=== PATIENT | female | born 1985 | race Caucasian/White ===

== ENCOUNTER → 2017-11-26 12:22 | Outpatient (CLI) | payer MEDICAID, SELFPAY ==
--- NOTE | 2017-11-26 12:25 | US_ITS ---
STUDY: ULTRASOUND OF THE FEMALE PELVIS - COMPLETE REASON FOR EXAM: Female, 32 years old. Chronic pelvic pain. History of endometriosis. LMP: TECHNIQUE: Transabdominal and Transvaginal TECHNICAL QUALITY: Adequate. COMPARISON: Comparison is made with prior study dated March 06, 2010. FINDINGS: The uterus is retroflexed and is in a midline position. The uterus measures 7.8 cm x 4.2 cm x 2.3 cm. Normal uterine cervix. The endometrium measures 4.0 mm in thickness, and is hyperechoic. There is no demonstrated endometrial mass. There is no demonstrated myometrial mass. I.U.D. - The patient does not have an I.U.D. The right ovary is visualized. The right ovary measures 3.6 cm x 2.5 cm x 1.8 cm. There is no right ovarian cyst or ovarian mass. There is no visualized right adnexal mass or complex lesion. There is normal arterial and normal venous vascularity. The left ovary is visualized. The left ovary measures 3.2 cm x 2.6 cm x 1.9 cm. There is no left ovarian cyst or ovarian mass. There is no visualized left adnexal mass or complex lesion. There is normal arterial and normal venous vascularity. There is no fluid in the cul-de-sac. The pre void volume of the bladder was 463 ml. Polycystic ovary disease: No. US/Pelvic (Non ) IMPRESSION: Normal female pelvis. Electronically Signed: Alvaro Dos Santos MD at 15:03 EDT Tel [phone], Service support ,
--- NOTE | 2017-11-26 12:25 | US_ITS ---
STUDY: ULTRASOUND OF THE FEMALE PELVIS - COMPLETE REASON FOR EXAM: Female, 32 years old. Chronic pelvic pain. History of endometriosis. LMP: TECHNIQUE: Transabdominal and Transvaginal TECHNICAL QUALITY: Adequate. COMPARISON: Comparison is made with prior study dated March 06, 2010. FINDINGS: The uterus is retroflexed and is in a midline position. The uterus measures 7.8 cm x 4.2 cm x 2.3 cm. Normal uterine cervix. The endometrium measures 4.0 mm in thickness, and is hyperechoic. There is no demonstrated endometrial mass. There is no demonstrated myometrial mass. I.U.D. - The patient does not have an I.U.D. The right ovary is visualized. The right ovary measures 3.6 cm x 2.5 cm x 1.8 cm. There is no right ovarian cyst or ovarian mass. There is no visualized right adnexal mass or complex lesion. There is normal arterial and normal venous vascularity. The left ovary is visualized. The left ovary measures 3.2 cm x 2.6 cm x 1.9 cm. There is no left ovarian cyst or ovarian mass. There is no visualized left adnexal mass or complex lesion. There is normal arterial and normal venous vascularity. There is no fluid in the cul-de-sac. The pre void volume of the bladder was 463 ml. Polycystic ovary disease: No. US/Transvaginal Non- IMPRESSION: Normal female pelvis. Electronically Signed: Alvaro Dos Santos MD at 15:03 EDT Tel [phone], Service support ,
== END ==
PROVIDERS: Family Provider Internal Medicine; PCP Internal Medicine; Visit Provider Obstetrics & Gynecology
DX: R14.0 Abdominal distension (gaseous) (principal); R10.2 Pelvic and perineal pain; G89.29 Other chronic pain
CPT/HCPCS: 76830; 76856; 93976

== ENCOUNTER 2018-01-20 11:50 | Day surgery (SDC) | payer MEDICAID, SELFPAY ==
[2018-01-20] VITALS (7 sets, daily range): BP systolic 97–127; BP diastolic 65–74; PULSE 52–81; RESP 14–16; TEMP 36.2–36.9; O2SAT 95–100; BMI 27.4
--- NOTE | 2018-01-20 06:36 | HP.PCM_ITS ---
- Problem List (1) NOMAN III (cervical intraepithelial neoplasia grade III) with severe dysplasia Status: Acute History and Physical Date of Admission: 01/20/18 Intake Vital Signs 3 11/18/17 Body Mass Index (BMI) 25.1 11/18/17 Blood Pressure 98/71 11/18/17 Height 5 ft 9 in 11/18/17 Weight: 174 lb 2 oz 11/18/17 Body Mass Index (BMI) 25.7 11/18/17 Blood Pressure 108/73 Intake Visit Reasons: NEW PT. NOMAN F/U Chief Complaint: NOMAN Follow Up Gr[employer] 9 Thru 12 Vis[employer] Required: No Is patient in pain?: Yes Allergies duloxetine HCl [From Cymbalta] Allergy (Verified 11/18/17 15:23) Other ketorolac tromethamine [From Toradol] Adverse Reaction (Verified 11/18/17 15:23) Other prochlorperazine edisylate [From Compazine] Adverse Reaction (Verified 11/18/17 15:23) Unknown prochlorperazine maleate [From Compazine] Adverse Reaction (Verified 11/18/17 15 :23) Unknown Medications Dicyclomine HCl [Bentyl] 10 mg PO TID PRN PRN 02/08/15 [History Confirmed ] [place] Carbonate [Lithobid] 300 mg PO TID 02/08/15 [History Confirmed 11/18/17] Magnesium Oxide [Mag-Ox 400] 400 mg PO DAILY 02/08/15 [History Confirmed ] Metoprolol Tartrate [Lopressor (Beta Elizabeth)] 25 mg PO DAILY 02/08/15 [History Confirmed 11/18/17] Oxcarbazepine [Trileptal] 300 mg PO BID 02/08/15 [History Confirmed 02/08/15] Quetiapine Fumarate [Seroquel Xr] 300 mg PO QHS 02/08/15 [History Confirmed 04/30] Sertraline HCl [Zoloft] 200 mg PO DAILY 02/08/15 [History Confirmed 11/18/17] alprazolam 1 mg tablet 1 mg PO ONCE 11/18/17 [History Confirmed 11/18/17] drospirenone-ethinyl estradiol 3 mg-0.02 mg (24) tablet 1 tab PO QDAY 11/18/17 [ History Confirmed 11/18/17] pregabalin 200 mg capsule 200 mg PO TID 11/18/17 [History Confirmed 11/18/17] triamterene 37.5 mg-hydrochlorothiazide 25 mg capsule 1 cap PO QAM 11/18/17 [ History Confirmed 11/18/17] Is last menstrual period known: Yes Last Menstral Period: 11/11/17 Post menopausal: No Patient : No : No PFSH Medical History Abnormal Pap smear of cervix (Acute) Anxiety and depression (Acute) Endometriosis (Acute) PTSD (post-traumatic stress disorder) (Acute) Tachycardia (Acute) Surgical History H/O laparoscopy (Acute) History of appendectomy (Acute) Family History Grandmother Alzheimer disease Thyroid disorder Myocardial infarction Grandfather Cancer Lung Social History Smoking Status: Current every day smoker alcohol intake: never substance use type: does not use caffeine: Yes frequency: 3-4 times per week seatbelt use: always do you feel safe at home: Yes additional social history: single- unemployed HPI NEW PT. NOMAN F/U: Details: JONAS SHAW is a 32 year old who presents for an abnormal pap smear she had a colposcopy recently and she had high grade abnormalities. she is also co bloating and lower pelvic pain that is new for her and increased. she has a history of endometriosis and takes continuous ocp. Female Reproductive History Last Menstral Period: 11/11/17 Pregancy History 2 0 Elective abortions Hx Para Spontaneous abortions Hx # Term Pregnancies Ectopic pregnancies Hx # Pregnancies Multiple births # of living children ROS Const Constitutional: Denies poor appetite, headache(s), fever(s), increased appetite , weight gain, weight loss or fatigue Cardio Card: Denies chest pain Resp Resp: Denies dyspnea or cough GI GI: Reports as per HPI and abdominal pain; denies vomiting, nausea or constipation : Reports as per HPI; denies urinary urgency, vaginal discharge, urinary frequency, vaginal itching, vaginal odor, vaginal dryness, urinary incontinence, urinary hesitancy, difficulty urinating, painful urination or nipple discharge Skin Skin/Breast: Denies breast lump, breast pain, breast skin changes, nipple discharge or change in hair Exam Const General: cooperative, healthy appearing, comfortable, no acute distress, well developed Nutritional Appearance: average body habitus Orientation: alert [facility] Head: normal to inspection, normocephalic Neck Neck: normal visual inspection, trachea midline Thyroid: thyroid normal Resp Effort & Inspection: normal respiratory effort GI Inspection: normal to inspection, non-distended Palpation: soft, no hepatosplenomegaly General: bladder normal to palpation External Female Exam: normal external appearance, normal appearance of the urethra Urethra: normal appearance of the urethra, normal palpation, no discharge Speculum Exam - Vagina: normal appearance of the vagina, normal vaginal discharge Speculum Exam - Cervix: normal appearance of the cervix, nontender Bimanual Exam- Vagina & Uterus: bladder normal to palpation, No cervical tenderness, normal bimanual exam (mild TTP), uterine size normal, uterine shape normal, uterine mobility normal, uterine consistency normal, normal cervical palpation Bimanual Exam- Adnexa, other: normal adnexae, adnexae mobile, no adnexal masses , pelvic support normal Pelvic Support: normal Skin General: no rashes or lesions noted Assessment & Plan Problems 1. NOMAN III (cervical intraepithelial neoplasia grade III) with severe dysplasia D06.9 2. Endometriosis N80.9 3. Chronic female pelvic pain R10.2; G89.29 Plan recommend LEEP procedure Orders Orders: 2 Pelvic (Non ) 11/18/17 G89.29, R10.2, R14.0 Transvaginal Non- 11/18/17 G89.29, R10.2, R14.0 patient seen and no clinically relevant updates needed
[2018-01-20 12:17] LABS: Internal QC Validated? YES +Cl - CLEAR BKGD; Pregnancy, Urine Negative Negative
[2018-01-20] MEDS: FERRIC SUBSULFATE 8 GM SOLN (13:24)
--- NOTE | 2018-01-20 14:00 | CER_PTH ---
PATIENT: JONAS SHAW LOC: [facility] [place] U#:[id number] AGE/SX: 32/F ROOM: RE01/20/[address]: Dr. Anna Heller MD : [id number] BED: DIS: 01/20/2018 SPEC #: [id number] RECD: 01/21/18 10:35 STATUS: SALINA CELINA #: [id number] ALON: 01/20/18 14:[address]: Anna Heller DEPT: SURGICAL PATHOLOGY RECD BY: Herbert Maddox ENTERED: 01/21/18 11:54 SP TYPE: CERV OTHR DR: Dr. Delmis Chavez MD Tissues: B - Uterine cervix, NOS A - Endocervical Procedures: Surgery Specimen Level IV Surgery Specimen Level V HEADER OPERATION: LEEP cone PRE-OP DIAGNOSIS: NOMAN III, severe dysplasia, endometriosis, chronic pelvic pain TISSUE SUBMITTED: A ? Endocervical curettings, B ? Cervical biopsy MICROSCOPIC DIAGNOSIS A. Endocervical curettings: Fragments of benign endocervical epithelium and mucous, negative for dysplasia. B. Cervix, LEEP conization: Focal minimal changes suspicious for HPV cytopathic effects. Chronic inflammation. Resection margins are free of dysplastic changes. SJ:pierre 01/24/18 MICROSCOPIC DESCRIPTION Slides are reviewed. GROSS DESCRIPTION A - Received in fixative is one container labeled with the patient's name and designated endocervical curettings. The specimen consists of light matias mucoid material aggregating to 1.5 x 0.5 x <0.1 cm. The specimen is totally submitted in one cassette. B - Received in fixative is one container labeled with the patient's name and designated cervical biopsy. The specimen consists of glistening matias mucosa with attached hemorrhagic submucosal tissue resembling a cone and measuring 2 x 2 cm and a depth of excision measuring 1.8 cm. The nonmucosal surfaces are inked. The specimen is radially sectioned and totally submitted in three cassettes. / AM:pierre 01/21/18 TC:5 CPT: 02762, 96751
--- NOTE | 2018-01-20 15:31 | PCM.DC.LEE ---
Discharge Diet: No Restrictions Discharge Activity: Return to Normal Activity, May not drive while taking narcotic pain medications. May resume sexual activity in: 4 weeks - Nothing in the vagina for 4 weeks Call your doctor if you observe: Fever of 101 or Higher, Using more than one pad per hour Allergies/Adverse Reactions: Allergies duloxetine HCl [From Cymbalta] Allergy (Verified 01/13/18 10:26) Other ketorolac tromethamine [From Toradol] Adverse Reaction (Verified 01/13/18 10:26) Other prochlorperazine edisylate [From Compazine] Adverse Reaction (Verified 01/13/18 10:26) Unknown prochlorperazine maleate [From Compazine] Adverse Reaction (Verified 01/13/18 10:26) Unknown Medications to take at Discharge Dicyclomine HCl [Bentyl] 10 mg PO TID PRN PRN 02/08/15 [place] Carbonate [Lithobid] 300 mg PO TID 02/08/15 Magnesium Oxide [Mag-Ox 400] 400 mg PO DAILY 02/08/15 Metoprolol Tartrate [Lopressor (Beta Elizabeth)] 25 mg PO DAILY 02/08/15 Oxcarbazepine [Trileptal] 300 mg PO BID 02/08/15 Quetiapine Fumarate [Seroquel Xr] 300 mg PO QHS 02/08/15 Sertraline HCl [Zoloft] 200 mg PO DAILY 02/08/15 alprazolam 1 mg tablet 1 mg PO ONCE 11/18/17 drospirenone-ethinyl estradiol 3 mg-0.02 mg (24) tablet 1 tab PO QDAY 11/18/17 pregabalin 200 mg capsule 200 mg PO TID 11/18/17 triamterene 37.5 mg-hydrochlorothiazide 25 mg capsule 1 cap PO QAM 11/18/17 RX: Oxycodone HCl/Acetaminophen [Percocet 5-325] 2 tablet PO Q4H PRN PRN 7 Days #10 tablet 01/20/18 The following prescriptions were given: RX: Oxycodone HCl/Acetaminophen [Percocet 5-325] 2 tablet PO Q4H PRN PRN 7 Days #10 tablet PRN Reason: Moderate-Severe pain Primary Care Physician: Delmis Chavez MD [Primary Care Provider] - Please Follow Up With: Anna Heller MD - [phone] When: 3-4 weeks
--- NOTE | 2018-01-20 15:32 | PCM.OPRPT ---
Problem List (1) YANN III (cervical intraepithelial neoplasia grade III) with severe dysplasia Status: Acute Report of Operation Date of Procedure: 01/20/18 Pre-Operative Diagnosis: yann III Post-Operative Diagnosis: same Surgery/Procedure Performed:: leep Description of Surgical Findings:: normal cervix Type of Anesthesia:: Local MAC Special Medications: monsels paste Specimen's removed: cervix and ecc Drains: none Fluids Replaced: crystalloid Description of Procedure: Patient was taken to the operating room and placed under MAC anesthesia prepped and draped in normal sterile fashion the dorsal lithotomy position. Paracervical block was placed with 1% lidocaine and using a loop electrode the outer part of the cervix was removed including the squamocolumnar junction. Endocervical curettings were taken and the base of the cervix was cauterized around the borders and the base to obtain excellent hemostasis. Monsel's paste was placed and patient was awoken and taken recovery in stable condition. Grafts/Implants Used: none - Complications none
[2018-01-20] MEDS: oxyCODONE 5 MG Tablet 10 MG PO (16:09)
== END 2018-01-20 16:41 | disposition home or self-care (01) ==
LOC: SDC 11:50 → AC 11:51
PROVIDERS: Family Provider Internal Medicine; PCP Internal Medicine; Visit Provider Obstetrics & Gynecology
PROC: 0UBC7ZZ Excision of Cervix, Via Natural or Artificial Opening (ICD-10-PCS; CPT 57522; principal; 2018-01-20 13:45)
DX: D06.9 Carcinoma in situ of cervix, unspecified (principal); N80.9 Endometriosis, unspecified; R10.2 Pelvic and perineal pain; G89.29 Other chronic pain; K58.9 Irritable bowel syndrome, unspecified; F32.9 Major depressive disorder, single episode, unspecified; F41.9 Anxiety disorder, unspecified; F43.11 Post-traumatic stress disorder, acute; X58.XXXA Exposure to other specified factors, initial encounter; Y93.9 Activity, unspecified; Y92.9 Unspecified place or not applicable; Y99.9 Unspecified external cause status; F17.200 Nicotine dependence, unspecified, uncomplicated; Z79.899 Other long term (current) drug therapy; Z87.820 Personal history of traumatic brain injury
CPT/HCPCS: 00940; 57522; 81025; 88305; 88307; J7120

== ENCOUNTER 2018-11-07 11:24 | Emergency (ER) | payer MEDICAID, SELFPAY ==
[2018-11-07 11:25] VITALS: BP 117/70; PULSE 94; RESP 17; TEMP 36.9; O2SAT 97; BMI 27.3
--- NOTE | 2018-11-07 11:47 | RAD_ITS ---
STUDY: X-RAY CHEST REASON FOR EXAM: Female, 33 years old. Cough and shortness of breath TECHNIQUE: PA and lateral views of the chest. COMPARISON: None. FINDINGS: The lungs are clear and expanded. There is no demonstrated pleural abnormality. Normal size heart. Normal mediastinum and kang. Normal visualized pulmonary arteries. Normal visualized aortic arch and descending thoracic aorta. Normal visualized thoracic spine. Normal visualized ribs, clavicles, and shoulders. There is no demonstrated abnormality of the visualized soft tissue structures of the upper abdomen. RAD/Chest PA and Lateral IMPRESSION: Normal x-ray examination of the chest. Electronically Signed: Joey Cain DO at 12:32 EST Tel , Service support ,
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
--- NOTE | 2018-11-07 12:48 | ED.DEP ---
ED Disposition - Plan for ED Patient: Disposition: Home or Assisted Living Instructions: Acute Bronchitis Prescriptions: Azithromycin [Zithromax Z-Zeb] 250 mg PO UD #1 box Referrals: Delmis Chavez MD [Primary Care Provider] - 1 Week if not improving Additional Instructions: Plenty of fluids and rest. Tylenol Motrin for any fever. Stop smoking. Only start the antibiotic Zithromax if not getting better or worse in 5 days.
[2018-11-07 12:57] VITALS: BP 116/84; PULSE 89; RESP 16; TEMP 36.8; O2SAT 95
== END 2018-11-07 12:58 | disposition home or self-care (01) ==
PROVIDERS: Emergency Provider Emergency Medicine; Family Provider Internal Medicine; PCP Internal Medicine
DX: J20.9 Acute bronchitis, unspecified (principal); R21 Rash and other nonspecific skin eruption; Z72.0 Tobacco use; Z87.820 Personal history of traumatic brain injury
CPT/HCPCS: 71046; 99282

== ENCOUNTER → 2019-06-06 17:55 | Outpatient (CLI) | payer MEDICAID, SELFPAY ==
[2019-06-06 15:21] VITALS: BMI 27.3
[2019-06-06 22:08] LABS: Chlamydia Trachomatis by PCR Negative (Negative); Neisserai gonorrhoeae by PCR Negative (Negative); Probe Check PASS; Sample Adequacy Control PASS; Specimen Processing Control PASS
[2019-06-11 13:34] LABS: HPV APTIMA, High Risk Negative (Negative)
== END ==
PROVIDERS: Family Provider Internal Medicine; PCP Internal Medicine; Visit Provider Nurse Practitioner Women's Health
DX: Z11.3 Encounter for screening for infections with a predominantly sexual mode of transmission (principal); Z12.4 Encounter for screening for malignant neoplasm of cervix
CPT/HCPCS: 87491; 87591; 87624; 88175; G0145

== ENCOUNTER → 2019-11-27 10:51 | Outpatient (CLI) | payer MEDICAID, SELFPAY ==
[2019-06-06 15:21] VITALS: BMI 27.3
[2019-11-27 13:07] LABS: Amphetamine Urine VISTA NEGATIVE (<1000 ng/mL); Barbiturate Urine VISTA NEGATIVE (< 200 ng/mL); Benzodiazepine Urine VISTA POSITIVE (< 200 ng/mL); Cocaine Urine VISTA NEGATIVE (< 300 ng/mL); Ecstacy Urine VISTA NEGATIVE (< 500 ng/mL); Methadone Urine VISTA NEGATIVE (< 300 ng/mL); PCP Urine VISTA NEGATIVE (< 25 ng/mL); THC Urine VISTA NEGATIVE (< 50 ng/mL); Vista UDS pH Range 7
== END ==
PROVIDERS: PCP Internal Medicine; Referring Provider Anesthesiology Pain Medicine; Visit Provider Anesthesiology Pain Medicine
DX: F11.20 Opioid dependence, uncomplicated (principal)
CPT/HCPCS: 80307

== ENCOUNTER → 2020-09-03 09:50 | Outpatient (CLI) | payer MEDICAID, SELFPAY ==
[2019-06-06 15:21] VITALS: BMI 27.3
== END ==
PROVIDERS: PCP Internal Medicine
DX: R56.9 Unspecified convulsions (principal)
CPT/HCPCS: 87635; C9803; U0003

== ENCOUNTER 2024-08-16 16:28 | Emergency (ER) | payer MEDICAID, SELFPAY ==
[2024-08-16 16:29] VITALS: BP 130/85; PULSE 86; RESP 18; TEMP 36.6; O2SAT 100; BMI 28.3
--- NOTE | 2024-08-16 17:15 | RAD_ITS ---
STUDY: X-RAY CHEST REASON FOR EXAM: Female, 39 years old. cough TECHNIQUE: PA and lateral COMPARISON: November 07, 2018 FINDINGS: Mild elevation of right hemidiaphragm and crowding of the markings in the right lower lobe likely representing subsegmental atelectasis although cannot exclude mild pneumonic infiltrate... There is no demonstrated pleural abnormality. Normal size heart. Normal mediastinum and kang. Normal visualized pulmonary arteries. Normal visualized aortic arch and descending thoracic aorta. Normal visualized thoracic spine. Normal visualized ribs, clavicles, and shoulders. There is no demonstrated abnormality of the visualized soft tissue structures of the upper abdomen. RAD/Chest PA and Lateral IMPRESSION: Mild right basilar atelectasis or focal infiltrate. Electronically Signed: Darwin Romo MD at 17:59 EST ,
[2024-08-16 17:26] VITALS: BP 112/78; PULSE 74; RESP 13; O2SAT 96
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
[2024-08-16 17:44] VITALS: BP 106/81; PULSE 75; RESP 8; TEMP 37.2; O2SAT 97
== END 2024-08-16 17:51 | disposition home or self-care (01) ==
LOC: ED 17:50
PROVIDERS: Emergency Provider Emergency Medicine; PCP Internal Medicine; Visit Provider Emergency Medicine
DX: J06.9 Acute upper respiratory infection, unspecified (principal); F17.210 Nicotine dependence, cigarettes, uncomplicated
CPT/HCPCS: 71046; 99282

== ENCOUNTER 2024-12-19 07:49 | Observation (INO) | payer MEDICAID, SELFPAY ==
[2024-12-19 07:49] VITALS: BP 109/76; PULSE 79; RESP 14; TEMP 36.2; O2SAT 98
--- NOTE | 2024-12-19 08:00 | CT_ITS ---
PROCEDURE: BRAIN/HEAD WITHOUT CONTRAST 12/19/2024 REASON FOR EXAM: HEADACHE. TECHNIQUE: Head CT without intravenous contrast. Coronal and Sagittal reconstruction series were provided. One or more dose reduction techniques were used (e.g., Automated exposure control, adjustment of the mA and/or kV according to patient size, use of iterative reconstruction technique. RADIATION DOSE SUMMARY: CTDlvol: 44.99 mGy DLP: 796.11 mGycm COMPARISON: No relevant prior FINDINGS: Cerebrum: No intraparenchymal hemorrhage. No abnormal areas of encephalomalacia. No mass effect or midline shift. Weeks-white matter differentiation is normal. Ventricles and cisterns: Appropriate size for patient's age. Extra-axial fluid: Unremarkable. Posterior fossa: Unremarkable cerebellum. No abnormalities involving the brainstem. Paranasal sinuses: Normal. Vasculature: Unremarkable. Mastoid air cells: Normal. Calvarium: Unremarkable. Soft tissues: Unremarkable. CT/Brain/Head without Contrast IMPRESSION: No acute intracranial abnormalities are demonstrated. Reading Location: [place] [id number]
--- NOTE | 2024-12-19 08:00 | CT_ITS ---
PROCEDURE: CTA HEAD AND NECK W/ CONTRAST 12/19/2024 REASON FOR EXAM: HEADACHE TECHNIQUE: CTA imaging of the head and neck from the aortic arch to the skull vertex with intravenous contrast. Coronal and Sagittal reconstruction series were provided. 3D post processing, 3D reconstructions, Maximum intensity projection (MIPs) Volume rendering and Shaded surface rendering was provided. CONTRAST: Isovue 370 VOLUME: 93 mL One or more dose reduction techniques were used (e.g., Automated exposure control, adjustment of the mA and/or kV according to patient size, use of iterative reconstruction technique). # of known CTs in the past 12 months: 0 # of known Cardiac Nuclear Medicine Studies in the past 12 months: 0 RADIATION DOSE SUMMARY: CTDlvol: 46.80 mGy DLP: 712.05 mGycm COMPARISON: Earlier CT brain on the same date. FINDINGS: Aortic Arch: Unremarkable as visualized Brachiocephalic and Subclavians: Unremarkable. RIGHT Carotid: Right CCA: No significant plaque or stenoses. Right ICA: No significant plaque or stenoses. Right ECA: No significant plaque or stenoses. LEFT Carotid: Left CCA: No significant plaque or stenoses. Left ICA: No significant plaque or stenoses. Left ECA: No significant plaque or stenoses. Vertebrals: RIGHT Vertebral: No significant plaque or stenoses. LEFT Vertebral: No significant plaque or stenoses. Anatomy: Unremarkable Aneurysm or avm: None are visualized. Anterior cerebral arteries: Unremarkable. Middle cerebral arteries: Unremarkable. Basilar artery: Unremarkable. Posterior cerebral arteries: Unremarkable. Other major branches of the posterior circulation: Unremarkable. Major venous structures: Unremarkable. Other findings: Neck: No thyroid nodules. No adenopathy lungs: Unremarkable. Bones: Normal. CT/CTA Head AND Neck W/ Contrast IMPRESSION: Unremarkable CTA of the head and neck. Reading Location: [place] [id number]
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
[2024-12-19] MEDS: 0.9% Normal Saline (1000mL) 1,000 ML 1000 ML IV (08:27)
[2024-12-19] MEDS: Ketorolac 30 MG/ML Syringe IV (08:28)
[2024-12-19] MEDS: Metoclopramide 10 MG/2 ML Vial IV (08:28)
[2024-12-19] MEDS: DiphenhydrAMINE 50 MG/ML Syringe 25 MG IV (08:28)
[2024-12-19 08:29] LABS: Absolute Neutrophil Count 2.4 X10^3/uL (2.0-7.7); Basophil# 0.05 X10^3/uL; Basophil% 0.8 % (0-1); Eosinophil# 0.12 X10^3/uL; Eosinophils% 1.8 % (0-5); Hematocrit 34.8 % (37-47); Hemoglobin 12.6 g/dL (12.0-15.0); Lymphocyte % 55.6 % (19-41); Mean Corp Hgb Conc 36.2 g/dL (32-36); Mean Corpuscular Hgb 31.7 pg (27.0-32.0); Mean Corpuscular Volume 87.4 fL (81-99); Mean Platelet Vol. 8.4 fl (6.2-12.0); Monocyte# 0.38 X10^3/uL; Monocyte% 5.7 % (0-10); NRBC Flagged by Analyzer 0 % (0-5); Neutrophil # 2.39 X10^3/uL (2.7-7.7); Neutrophil % 35.8 % (47-70); Platelet Count 225 K/mm3 (150-450); RBC Distribution Width CV 11.8 % (11.6-14.6); RBC Distribution Width SD 37.8 fl (35.1-43.9); Red Blood Count 3.98 M/mm3 (4.2-5.4); White Blood Count 6.7 K/mm3 (4.4-11.0)
[2024-12-19 08:49] LABS: Anion Gap 12 (5-15); BUN 11 mg/dL (4-19); BUN/Creat Ratio 13.9 RATIO (10-20); Calcium,Total 9.1 mg/dL (7.6-11.0); Chloride 87 mmol/L (98-108); Creatinine, Serum 0.76 mg/dL (0.70-1.20); EST Glomerular Filtration Rate 103 (>60); Glucose 85 mg/dL (70-99); Potassium 3.7 mmol/L (3.3-5.1); Sodium Level 120 mmol/L (133-145)
[2024-12-19] MEDS: 0.45% Normal Saline 1,000 ML 150 ML IV (09:20)
[2024-12-19 09:49] VITALS: BP 138/60; PULSE 79; RESP 14; O2SAT 98
[2024-12-19 11:00] VITALS: BP 136/60; PULSE 78; RESP 14; O2SAT 98
[2024-12-19 12:35] LABS: Lithium < 0.10 mmol/L (0.60-1.20)
[2024-12-19 12:39] VITALS: BP 112/74; PULSE 72; RESP 16; TEMP 36.6; O2SAT 98
[2024-12-19 13:03] LABS: Osmolality, Serum 252 mOsm/KG (275-295)
[2024-12-19 13:18] VITALS: BMI 26.9
[2024-12-19] MEDS: 0.9% Saline Lock 10 ML Syringe IV (14:16)
[2024-12-19] MEDS: dexAMETHasone 10 MG/ML Vial IV (14:16)
[2024-12-19] MEDS: 0.9% Normal Saline (1000mL) 1,000 ML 150 ML IV ×2 (14:18→20:27)
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
[2024-12-19 16:00] LABS: Anion Gap 12 (5-15); BUN 11 mg/dL (4-19); BUN/Creat Ratio 14.4 RATIO (10-20); Calcium,Total 8.8 mg/dL (7.6-11.0); Carbon Dioxide 21.1 mmol/L (21.0-32.0); Chloride 88 mmol/L (98-108); Creatinine, Serum 0.74 mg/dL (0.70-1.20); EST Glomerular Filtration Rate 106 (>60); Estimated Creatinine Clearance 118.37 ml/min (50-250); Glucose 110 mg/dL (70-99); Potassium 3.3 mmol/L (3.3-5.1); Sodium Level 120 mmol/L (133-145)
--- NOTE | 2024-12-19 16:24 | NURSING ---
Backline text sent to Dr. Chang regarding an order for Abida. Mom said she can bring it in.
--- NOTE | 2024-12-19 16:49 | NURSING ---
Dr. Chang does not want pt to take Abida during this admission d/t migraine.
--- NOTE | 2024-12-19 17:12 | NURSING ---
Carlos (pharmacist) and Dr. Chang notified regarding pts request for timing change of most medications. Carlos spoke to pt. Dr. Chang is not changing the timing of any meds and will address the issue with her in the morning.
[2024-12-19 17:50] VITALS: BP 100/70; PULSE 71; RESP 18; TEMP 36.9; O2SAT 98
[2024-12-19 19:08] LABS: Mucous, Urine 0 SEEN /hpf (<or=2+)
[2024-12-19 19:14] LABS: Color, Urine Yellow (Yellow); Glucose, Dipstick Normal (Normal); Ketone-Dipstick Negative (Negative); Leukocyte Esterase-Dipstick 500 /ul (Negative); Nitrite-Dipstick Negative (Negative); Occult Blood-Urine 10 /ul (Negative); Protein-Dipstick 30 mg/dl (Negative); Urine Bilirubin Dipstick Negative (Negative); Urine Clarity Clear (Clear); Urine Urobilinogen Normal (Normal)
[2024-12-19 19:20] LABS: Osmolality, Urine 535 mOsm/KG
[2024-12-19 19:22] LABS: Urine Sodium 57 mmol/L (Not Establ.)
[2024-12-19 19:26] LABS: Amorphous Sediment 2+; Bacteria 3+ /hpf (None Seen); Red Blood Cells-Urine 0-5 SEEN /hpf (0-5); Squamous Epithelial Cells - UA 5-10 SEEN /hpf (5-10); White Blood Cells 5-10 SEEN /hpf (0-5)
[2024-12-19 20:25] VITALS: BP 107/68; PULSE 77; RESP 16; TEMP 37; O2SAT 97
[2024-12-19] MEDS: QUEtiapine 100 MG Tablet 400 MG PO (20:29)
[2024-12-19] MEDS: Sertraline 100 MG Tablet 200 MG PO (20:29)
[2024-12-19] MEDS: OXcarbazepine 300 MG Tablet PO (20:31)
[2024-12-20] MEDS: 0.9% Normal Saline (1000mL) 1,000 ML 150 ML IV (03:03)
[2024-12-20 03:04] VITALS: BP 117/83; PULSE 83; RESP 18; TEMP 36.5; O2SAT 96
[2024-12-20] MEDS: OXcarbazepine 300 MG Tablet PO (03:06)
[2024-12-20] MEDS: Pregabalin 50 MG Capsule PO (03:06)
[2024-12-20] MEDS: Gabapentin 300 MG Capsule PO (03:06)
[2024-12-20] MEDS: Acetaminophen 325 MG Tablet 650 MG PO (03:09)
[2024-12-20] MEDS: Rizatriptan Benzoate 10 MG Tablet PO (04:16)
--- NOTE | 2024-12-20 07:02 | PCM.PN.HOSP ---
Reason for Visit Reason for Visit: Diagnoses Hypo-osmolality and hyponatremia (12/19/24) Migraine, unspecified, not intractable, without status migrainosus (12/19/24) Subjective Subjective Feels well. Headache resolved. Objective Data Objective Data Vital Signs: Vital Signs Temp Pulse Resp BP Pulse Ox O2 Del Method 36.5 C L 83 18 117/83 H 96 Room Air 12/20/24 03:04 12/20/24 03:04 12/20/24 03:04 12/20/24 03:04 12/20/24 03:04 12/20/24 03:04 Oxygen Delivery Method Room Air Weight: 82.554 kg Body Mass Index (BMI) 26.9 Intake & Output: Intake and Output for Last 24 Hours 12/18/24 12/19/24 12/20/24 23:59 23:59 23:59 Intake Total 3325 / 3325 990 / 990 Output Total 600 / 600 1200 / 1200 Balance 2725 / 2725 -210 / -210 Lab / Micro Data 12/19/24 08:13 12/20/24 06:50 Labs: Laboratory Results - last 24 hr 12/19/24 08:13: WBC 6.7, RBC 3.98 L, Hgb 12.6, Hct 34.8 L, MCV 87.4, MCH 31.7, MCHC 36.2 H, RDW Std Deviation 37.8, RDW Coeff of Radha 11.8, Plt Count 225, MPV 8.4, Immature Gran % (Auto) 0.300, Neut % (Auto) 35.8 L, Lymph % (Auto) 55.6 H, [place] % (Auto) 5.7, Eos % (Auto) 1.8, Baso % (Auto) 0.8, Absolute Neuts (auto) 2.4, Absolute Lymphs (auto) 3.70, Nucleated RBC % 0, Sodium 120 L, Potassium 3.7, Chloride 87 L, Carbon Dioxide 21.0, Anion Gap 12, BUN 11, Creatinine 0.76, Est GFR (MDRD) Non-Af 103, BUN/Creatinine Ratio 13.9, Glucose 85, Calcium 9.1 12/19/24 10:30: Serum Osmolality 252 L, [place] < 0.10 L 12/19/24 15:00: Sodium 120 L, Potassium 3.3, Chloride 88 L, Carbon Dioxide 21.1, Anion Gap 12, BUN 11, Creatinine 0.74, Estim Creat Clear Calc 118.37, Est GFR (MDRD) Non-Af 106, BUN/Creatinine Ratio 14.4, Glucose 110 H, Calcium 8.8 12/19/24 18:45: Urine Color Yellow, Urine Clarity Clear, Urine pH 7.0, Ur Specific [place] 1.010, Urine Protein 30 H, Urine Glucose (UA) Normal, Urine Ketones Negative, Urine Occult Blood 10 H, Urine Nitrite Negative, Urine Bilirubin Negative, Urine Urobilinogen Normal, Ur Leukocyte Esterase 500 H, Urine RBC 0-5 SEEN, Urine WBC 5-10 SEEN, Ur Squamous Epith Cells 5-10 SEEN, Amorphous Sediment 2+, Urine Bacteria 3+, Urine Mucus 0 SEEN, Urine Osmolality 535, Ur Random Sodium 57 Radiography Diagnostic Testing: Radiology Impression Brain CT 12/19/24 08:00 IMPRESSION: No acute intracranial abnormalities are demonstrated. Reading Location: [place] [address] Head/Neck CTA 12/19/24 08:00 IMPRESSION: Unremarkable CTA of the head and neck. Reading Location: [place] [address] Physical Exam Const alert and no apparent distress Constitutional Narrative: comfortable. nontoxic. Assessment & Plan Assessment/Plan (1) Headache, migraine: PLAN: Resolved with 1x dose of IV 10mg of dexamethasone Recommend close follow up with neurology as outpt (already an established patient) to see if any additional prophylactic measures would be necessary. (2) Hyponatremia: PLAN: Improved I still suspect due to polydipsia. Advised liberal salt intake and labs next week. PLAN: Plan code status: full DC home.
[2024-12-20 08:07] VITALS: BP 112/82; PULSE 82; RESP 16; TEMP 36.6; O2SAT 100
[2024-12-20 08:09] LABS: Anion Gap 11 (5-15); BUN 7 mg/dL (4-19); BUN/Creat Ratio 11.8 RATIO (10-20); Calcium,Total 9.2 mg/dL (7.6-11.0); Carbon Dioxide 20.1 mmol/L (21.0-32.0); Chloride 93 mmol/L (98-108); Creatinine, Serum 0.61 mg/dL (0.70-1.20); EST Glomerular Filtration Rate 117 (>60); Glucose 86 mg/dL (70-99); Potassium 3.9 mmol/L (3.3-5.1); Sodium Level 124 mmol/L (133-145)
[2024-12-20 08:24] VITALS: RESP 16; O2SAT 100
--- NOTE | 2024-12-20 09:23 | PCM.DC.SUM ---
Providers Date of Admission: 12/19/24 Primary Care Physician: Dr. Delmis Chavez MD Reason For Visit: HYPONATREMIA Diagnosis Discharge Diagnosis (1) Headache, migraine: Status: Acute Code(s): G43.909 - Migraine, unspecified, not intractable, without status migrainosus Plan: Resolved with 1x dose of IV 10mg of dexamethasone Recommend close follow up with neurology as outpt (already an established patient) to see if any additional prophylactic measures would be necessary. (2) Hyponatremia: Status: Acute Code(s): E87.1 - Hypo-osmolality and hyponatremia Plan: Improved I still suspect due to polydipsia. Advised liberal salt intake and labs next week. Plan code status: full DC home. Medications at Discharge Home Medications oxcarbazepine 300 mg tablet 300 mg PO BID 02/08/15 sertraline 100 mg tablet 200 mg PO DAILY 02/08/15 alprazolam 1 mg tablet (Xanax) 1 mg PO DAILY PRN anxiety 11/18/17 drospirenone 3 mg-ethinyl estradiol 0.02 mg tablet 1 tab PO DAILY #84 tabs 03/18/21 buprenorphine 8 mg-naloxone 2 mg sublingual tablet 1 tab sublingual BID PRN pain 12/19/24 cetirizine 10 mg tablet 10 mg PO DAILY 12/19/24 cyclobenzaprine 10 mg tablet 10 mg PO BID PRN muscle spasm 12/19/24 gabapentin 300 mg capsule 300 mg PO BID 12/19/24 meloxicam 15 mg tablet 15 mg PO DAILY 12/19/24 metoprolol succinate 25 mg tablet,extended release 24 hr 25 mg PO DAILY 12/19/24 pregabalin 50 mg capsule 50 mg PO BID 12/19/24 quetiapine 400 mg tablet,extended release 24 hr 400 mg PO QPM 12/19/24 sumatriptan succinate 50 mg tablet 50 mg PO Q2H PRN migraine headache 12/19/24 trazodone 100 mg tablet 100 - 200 mg PO QHS PRN insomnia 12/19/24 Hospital Course Operations None Procedures None Weight / BMI Weight Weight: 82.554 kg Body Mass Index (BMI) 26.9 ABG / Lab / Microbiology Data 12/19/24 08:13 12/20/24 06:50 Laboratory: Laboratory Results - last 24 hr 12/19/24 10:30: Serum Osmolality 252 L, [place] < 0.10 L 12/19/24 15:00: Sodium 120 L, Potassium 3.3, Chloride 88 L, Carbon Dioxide 21.1, Anion Gap 12, BUN 11, Creatinine 0.74, Estim Creat Clear Calc 118.37, Est GFR (MDRD) Non-Af 106, BUN/Creatinine Ratio 14.4, Glucose 110 H, Calcium 8.8 12/19/24 18:45: Urine Color Yellow, Urine Clarity Clear, Urine pH 7.0, Ur Specific [place] 1.010, Urine Protein 30 H, Urine Glucose (UA) Normal, Urine Ketones Negative, Urine Occult Blood 10 H, Urine Nitrite Negative, Urine Bilirubin Negative, Urine Urobilinogen Normal, Ur Leukocyte Esterase 500 H, Urine RBC 0-5 SEEN, Urine WBC 5-10 SEEN, Ur Squamous Epith Cells 5-10 SEEN, Amorphous Sediment 2+, Urine Bacteria 3+, Urine Mucus 0 SEEN, Urine Osmolality 535, Ur Random Sodium 57 12/20/24 06:50: Sodium 124 L, Potassium 3.9, Chloride 93 L, Carbon Dioxide 20.1 L, Anion Gap 11, BUN 7, Creatinine 0.61 L, Estim Creat Clear Calc 143.60, Est GFR (MDRD) Non-Af 117, BUN/Creatinine Ratio 11.8, Glucose 86, Calcium 9.2 Radiography Diagnostic Testing: Radiology Impression Brain CT 12/19/24 08:00 IMPRESSION: No acute intracranial abnormalities are demonstrated. Reading Location: [place] [address] Head/Neck CTA 12/19/24 08:00 IMPRESSION: Unremarkable CTA of the head and neck. Reading Location: [place] [address] D/C Instructions Discharge Diet: No restrictions (add more salt to food. ) DC O2, CPAP, BIPAP Needs Home O2 Discharge instructions: No Meaningful Use Info Meaningful Use Meaningful Use Diagnoses (Choose all that apply): None applicable Ischemic Stroke Statin Dosing Therapy Reference: STATIN DOSE THERAPY REFERENCE: * Patients > 75 years receive moderate or high dose statin therapy. * Patients 75 years or YOUNGER should receive HIGH intensity statin dose unless contraindicated. You will be required to document reason for non-treatment if statin daily dose does not meet guidelines. HIGH DOSE STATIN THERAPY DAILY Atorvastatin > than or = to 40 mg Rosuvastatin > than or = to 20 mg Amlodipine + Atorvastatin > than or = to 2.5/40 mg Ezetimibe + Simvastatin 10/80 mg Simvastatin 80mg Discharge Plan Admission Admit Date/Time: 12/19/24 10:44 Primary Reason for Your Visit: Migraine. Hyponatremia. Attending Provider: Adolfo Chang Primary Care Provider: Delmis Chavez Instructions Additional Instructions / Restrictions: Your sodium is low we came in here(level was 120, normal level being 133) and improved while you are here to 124. Your sodium is still low but not critical. Do recommend that you really add salt to your food at this time and I do also want you to have some lab work next week just to ensure that your sodium is continue to improve and not dropping further. If it continues to drop you will need additional workup with your primary care doctor could work on, but if it is too low you may need to come back to the hospital. Discharge Orders/Prescriptions Prescriptions: Continued alprazolam [Xanax] 1 mg tablet 1 mg PO DAILY PRN (Reason: anxiety) sertraline 100 MG tablet 200 mg PO DAILY oxcarbazepine 300 MG tablet 300 mg PO BID cyclobenzaprine 10 mg tablet 10 mg PO BID PRN (Reason: muscle spasm) meloxicam 15 mg tablet 15 mg PO DAILY cetirizine 10 mg tablet 10 mg PO DAILY trazodone 100 mg tablet 100 - 200 mg PO QHS PRN (Reason: insomnia) gabapentin 300 mg capsule 300 mg PO BID pregabalin 50 mg capsule 50 mg PO BID quetiapine 400 mg tablet extended release 24 hr 400 mg PO QPM sumatriptan succinate 50 mg tablet 50 mg PO Q2H PRN (Reason: migraine headache) Rx Instructions: MAY REPEAT DOSE AFTER 2 HOURS NEEDED. buprenorphine-naloxone 8-2 mg tablet, sublingual 1 tab sublingual BID PRN (Reason: pain) metoprolol succinate 25 mg tablet extended release 24 hr 25 mg PO DAILY drospirenone-ethinyl estradiol 3-0.02 mg tablet 1 tab PO DAILY Qty: 84 0RF Rx Instructions: Discard placebo pills and start a new pack immediately. Referrals / Follow Up: Delmis Chavez MD [Primary Care Provider] - Within 1 Week Disposition Disposition (needs filled in before D/C Order can be placed): Home, Self Care Charges/Coding Visit Charges Inpatient E&M: 87784 Disch Hosp
[2024-12-20 10:16] LABS: Urine Sodium 127 mmol/L (Not Establ.)
--- NOTE | 2024-12-20 10:53 | PHA.DC.MR.R ---
Pharmacy [facility] Reconciliation Pharmacy Service has performed discharge medication reconciliation for this patient. The patient's discharge medication list was reviewed for discrepancies and discrepancies were resolved. Medications at Discharge Home Medications oxcarbazepine 300 mg tablet 300 mg PO BID 02/08/15 sertraline 100 mg tablet 200 mg PO DAILY 02/08/15 alprazolam 1 mg tablet (Xanax) 1 mg PO DAILY PRN anxiety 11/18/17 drospirenone 3 mg-ethinyl estradiol 0.02 mg tablet 1 tab PO DAILY #84 tabs 03/18/21 buprenorphine 8 mg-naloxone 2 mg sublingual tablet 1 tab sublingual BID PRN pain 12/19/24 cetirizine 10 mg tablet 10 mg PO DAILY 12/19/24 cyclobenzaprine 10 mg tablet 10 mg PO BID PRN muscle spasm 12/19/24 gabapentin 300 mg capsule 300 mg PO BID 12/19/24 meloxicam 15 mg tablet 15 mg PO DAILY 12/19/24 metoprolol succinate 25 mg tablet,extended release 24 hr 25 mg PO DAILY 12/19/24 pregabalin 50 mg capsule 50 mg PO BID 12/19/24 quetiapine 400 mg tablet,extended release 24 hr 400 mg PO QPM 12/19/24 sumatriptan succinate 50 mg tablet 50 mg PO Q2H PRN migraine headache 12/19/24 trazodone 100 mg tablet 100 - 200 mg PO QHS PRN insomnia 12/19/24
[2024-12-20 13:02] LABS: CORTISOL AM 1.71 ug/dL (6.02-18.40); Thyroid Stim Hormone (TSH) 0.754 uIU/mL (0.300-4.200)
--- NOTE | 2024-12-20 14:50 | NURSING ---
All documentation by director nursing service Vielka Jones reviewed by psychiatric nursing assistant Ana KAURN, RN.
[2024-12-20 15:42] LABS: Osmolality, Serum 264 mOsm/KG (275-295)
[2024-12-20 15:43] LABS: Osmolality, Urine 360 mOsm/KG
== END 2024-12-20 10:00 | disposition home or self-care (01) ==
LOC: ED 10:46 → ICU 11:38 → MS3 17:37
PROVIDERS: Emergency Provider Emergency Medicine; PCP Internal Medicine
DX: E87.1 Hypo-osmolality and hyponatremia (principal); G43.909 Migraine, unspecified, not intractable, without status migrainosus; R63.1 Polydipsia; F32.A Depression, unspecified; F41.9 Anxiety disorder, unspecified; F17.210 Nicotine dependence, cigarettes, uncomplicated; Z79.899 Other long term (current) drug therapy; Z87.820 Personal history of traumatic brain injury
CPT/HCPCS: 36415; 70450; 70496; 70498; 80048; 80178; 81001; 82533; 83930; 83935; 84300; 84443; 85025; 96361; 96374; 96375; 99221; 99284; Q9967; A4216; G0378